=== PATIENT | male | born 1960 | race American Indian/Alaskan Native ===

== ENCOUNTER 2017-03-21 07:38 | Outpatient (CLI) | payer OTHER ==
--- NOTE | 2017-03-21 08:59 | Cat Scan Report ---
CT chest without contrast: Thoracic aneurysm: Unenhanced transverse images through the chest demonstrate that the ascending aorta measures 3.9 cm. The descending aorta measures 2.7 cm. There are some coronary vascular calcifications present. There is no hilar or mediastinal adenopathy. The central airways are patent. The lungs are clear and well inflated. No pleural changes. The available images of the upper abdominal structures demonstrates a tiny nonobstructing calculus in the mid right kidney. No other findings. Impressions: 1. Thoracic aorta within normal limits. 2. Coronary vascular calcification. 3. Nonobstructing small right renal calculus.
== END 2017-03-21 07:39 | disposition home or self-care (01) ==
LOC: CT 07:38
PROVIDERS: ATTEND Internal Medicine Cardiovascular Disease
DX: I71.2 Thoracic aortic aneurysm, without rupture (principal); I25.10 Atherosclerotic heart disease of native coronary artery without angina pectoris; N20.0 Calculus of kidney
CPT/HCPCS: 71250

== ENCOUNTER 2017-03-23 08:44 | Day surgery (SDC) | payer OTHER ==
[2017-03-23] MEDS ORDERED: ECOTRIN PO ONE (09:14)
[2017-03-23 09:44] LABS: Basophils % (Auto) 0.8 % (0.0-1.8); Eosinophils % (Auto) 2.3 % (0.0-4.3); Hematocrit 41.4 % (35.5-45.6); Hemoglobin 13.9 gm/dl (11.8-15.2); Mean Corpuscular HGB Conc 34 % (32-34); Mean Corpuscular Hemoglobin 31 pg (28-32); Mean Corpuscular Volume 93 fl (84-94); Platelet Count 277 K/mm3 (140-440); Red Blood Count 4.46 M/mm3 (3.65-5.03); Red Cell Distribution Width 14.6 % (13.2-15.2); White Blood Count 5.6 K/mm3 (4.5-11.0)
[2017-03-23 09:55] LABS: INR 0.92 (0.87-1.13)
[2017-03-23] MEDS ORDERED: NACL 0.9% 500 ML 500 ML IV SCH (10:00)
[2017-03-23 10:01] LABS: Anion Gap 15 mmol/L; BUN/Creatinine Ratio 13; Blood Urea Nitrogen 12 mg/dL (9-20); Calcium 9.2 mg/dL (8.4-10.2); Carbon Dioxide 27 mmol/L (22-30); Chloride 102.5 mmol/L (98-107); Glucose 129 mg/dL (75-100); Potassium 3.9 mmol/L (3.6-5.0); Sodium 141 mmol/L (137-145)
[2017-03-23] MEDS ORDERED: VERSED ONE ×2 (10:41→14:13)
[2017-03-23] MEDS ORDERED: HEPARIN 10,000 UNITS/10 ML ONE (10:41)
[2017-03-23] MEDS ORDERED: HEPARIN/NS 5000 UNIT/500ML(CATH LAB) 1,000 ML IR ONE (10:41)
[2017-03-23] MEDS ORDERED: CALAN ONE (10:41)
[2017-03-23] MEDS ORDERED: NITROGLYCERIN SYRINGE 0 ML ONE (10:41)
[2017-03-23] MEDS ORDERED: XYLOCAINE 2% INFILTRATI ONE (10:41)
[2017-03-23] MEDS ORDERED: HEPARIN/NS 5000 UNIT/500ML(CATH LAB) 500 ML IR ONE (11:21)
[2017-03-23] MEDS: SUBLIMAZE ONE ×2 (11:35→11:40)
[2017-03-23] MEDS ORDERED: ULTRAM PO PRN (12:46)
--- NOTE | 2017-03-23 12:49 | Discharge Summary ---
Short Stay Discharge Plan Activity: advance as tolerated Weight Bearing Status: Partial Weight Bearing Diet: low fat, low cholesterol, low salt Wound: keep clean and dry Special Instructions: no heavy lifting (3 days) Follow up with: OZ STEPHEN MD [Primary Care Provider] - 7 Days RAS CHANG MD [Staff Physician] - 7 Days
[2017-03-23] MEDS ORDERED: NACL 0.9% 1000 ML 1,000 ML IV SCH (13:00)
[2017-03-23] MEDS ORDERED: SUBLIMAZE ONE (14:13)
--- NOTE | 2017-03-23 15:56 | Cardiac Catherization Report ---
PROCEDURES PERFORMED: 1. Right heart catheterization. 2. Left heart catheterization. 3. Selective left and right coronary angiography. 4. Left ventricular angiography. 5. Ascending aortic angiography. REASON FOR PROCEDURE: The patient is a 56-year-old man with a history of bicuspid aortic valve, and history of aortic coarctation, repaired at age 14. He was evaluated for an abnormal ECG and aortic outflow murmur. EKG was also abnormal with a left bundle-branch block. A Persantine thallium stress test was abnormal with a mostly fixed inferolateral defect. Right and left heart catheterization, and ascending aortic angiography was recommended. PROCEDURE: The patient was prepped and draped in a sterile fashion after informed consent. The right femoral artery and vein were both entered using the Seldinger technique, followed by placement of a 6-Sami sheath in the artery and an 8-Sami sheath in the vein. Right heart catheterization was performed with a [place]-Eric catheter. Following this, left heart catheterization was performed using a pigtail catheter. Cardiac output was measured using the thermodilution method. Simultaneous right and left heart filling pressures were measured, following which the [place]-Eric catheter was withdrawn. Left ventricular angiography was then performed. The pigtail was pulled out across the bicuspid aortic valve, and transaortic pressures were recorded. We then performed ascending aortic angiography. Selective left and right coronary angiography was then performed using #4 right and left Kenny catheters. Finally, the right Kenny catheter was withdrawn over the aortic arch and across the isthmus of the aorta, to record pressure gradient across the repaired coarctation. The catheters and the sheaths were then removed, hemostasis achieved over the arterial positions using an Angio-Seal device, and over the venous position using manual compression. The patient was returned to the postprocedure unit in stable condition. There were no complications. FINDINGS: HEMODYNAMICS: The mean right atrial pressure was 12. Right ventricular pressure was 30/12. Pulmonary artery pressure was 30/20. The mean pulmonary artery wedge pressure was 15. Left ventricular end-diastolic pressure was 15-18. Cardiac output was 6.43 liters per minute. Ascending aortic pressure was 127/60. On pullback across the aortic valve, there was no significant gradient. As reported above, a catheter pullback was also conducted around the aortic arch. There was no significant pressure gradient across the repaired coarctation. Instead, there was normal, peripheral amplification of the systolic pressures on pullback across the aortic arch and into the descending aorta. CHOLANGIOGRAPHY: The left main coronary artery was angiographically normal. There were mild irregularities of the left anterior descending artery. A large ramus intermedius artery was angiographically normal. The circumflex artery and its obtuse marginal branches were angiographically normal. The right coronary artery was dominant and similarly free of significant disease. There was [id number] left ventricular systolic dysfunction with mild diffuse hypokinesis, ejection fraction 40-45%. CONCLUSION: 1. High normal right and left heart filling pressures, borderline pulmonary hypertension. 2. No significant transaortic valve pressure gradient, no significant aortic stenosis. 3. No significant systolic gradient on pullback across the repaired aortic coarctation. 4. Mild ascending aortic dilatation on angiography. 5. Essentially angiographically normal coronary arteries. 6. [id number] left ventricular systolic dysfunction, ejection fraction 40-45%, representing a mild nonischemic cardiomyopathy. [facility]# [id number] RAFAL/NTS
[2017-03-23 16:47] VITALS: BP 114/78
== END 2017-03-23 16:35 | disposition home or self-care (01) ==
LOC: CATHLABREC 08:44
PROVIDERS: ATTEND Internal Medicine Cardiovascular Disease
DX: R94.31 Abnormal electrocardiogram [ECG] [EKG] (principal)
CPT/HCPCS: 36415; 80048; 82962; 85025; 85610; 85730; 93005; 93010; 93460; 93567; C1760; C1894; J1644; J2250; J3010; J7040; Q9967

== ENCOUNTER 2018-02-07 15:20 | Emergency (ER) | payer OTHER ==
[2018-02-07] MEDS ORDERED: ASPIRIN PO ONE (15:33)
[2018-02-07 16:16] LABS: Basophils % (Auto) 0.5 % (0.0-1.8); Eosinophils # (Auto) 0.1 K/mm3 (0.0-0.4); Eosinophils % (Auto) 1.2 % (0.0-4.3); Hematocrit 44.5 % (35.5-45.6); Hemoglobin 14.8 gm/dl (11.8-15.2); Lymphocytes # (Auto) 3.1 K/mm3 (1.2-5.4); Lymphocytes % (Auto) 34.2 % (13.4-35.0); Mean Corpuscular HGB Conc 33 % (32-34); Mean Corpuscular Hemoglobin 31 pg (28-32); Mean Corpuscular Volume 93 fl (84-94); Monocytes # (Auto) 0.7 K/mm3 (0.0-0.8); Monocytes % (Auto) 8.1 % (0.0-7.3); Platelet Count 259 K/mm3 (140-440); Red Blood Count 4.81 M/mm3 (3.65-5.03)
[2018-02-07 16:28] LABS: BUN/Creatinine Ratio 13; Blood Urea Nitrogen 13 mg/dL (9-20); Calcium 9.2 mg/dL (8.4-10.2); Hemolysis Index 10
[2018-02-07 17:37] VITALS: BP 123/81
--- NOTE | 2018-02-07 17:40 | Emergency Department Report ---
ED Shortness of Breath HPI - General Chief Complaint: Chest Pain Stated Complaint: CHEST PAIN Time Seen by Provider: 02/07/18 17:28 Source: patient Mode of arrival: Ambulatory Limitations: No Limitations - History of Present Illness Initial Comments: 57 year old male with past medical history of obesity, hypertension, type 1 diabetes, and heart surgery for coarctation of the aorta age 14, bicuspid aortic valve presents to the hospital complaining of progressively worsening shortness of breath, and palpitations while sleeping. Patient states he does snore and he is concerned that he has sleep apnea. Symptoms have worsened to the point where he is waking up every 1 to 2 hours and getting very little rest. Patient denies dyspnea on exertion, chest pain, calf tenderness, or edema His medical record review. Patient has been seen by [facility]. Patient had a cardiac catheterization on 03/23/2017 that showed normal coronary arteries. Mild ascending aortic dilatation. Mild to moderate LV systolic dysfunction with EF of 40-45% representing a mild nonischemic cardiomyopathy. Patient had a 24-hour Holter monitor placed 1 month ago. He saw Dr. Sharp 2 weeks ago for a routine visit. He also has seen Dr. Langston rn documentation specialist who also suggested that it sounds like he has sleep apnea. Next Available sleep study was in March and patient states he can't sleep he cant wait that long. - Related Data Home Medications Medication Instructions Recorded Confirmed Last Taken Canagliflozin [Invokana] 100 mg PO DAILY 03/23/17 03/23/17 03/23/17 Insulin Lispro [Humalog 100 50 units SQ AC 03/23/17 03/23/17 03/23/17 UNITS/ML Kwikpen] Lisinopril [Zestril] 40 mg PO DAILY 03/23/17 03/23/17 03/23/17 Naltrexone HCl/Bupropion HCl 1 each PO BID 03/23/17 03/23/17 03/23/17 [Contrave ER 8-90 mg Tablet] Tamsulosin [Flomax] 0.4 mg PO QDAY 03/23/17 03/23/17 03/22/17 hydroCHLOROthiazide [HCTZ] 25 mg PO QDAY 03/23/17 03/23/17 03/23/17 Allergies Allergy/AdvReac Type Severity Reaction Status Date / Time No Known Allergies Allergy Verified 03/23/17 09:14 ED Review of Systems ROS: Stated complaint: CHEST PAIN Other details as noted in HPI Comment: All other systems reviewed and negative ED Past Medical Hx - Past Medical History Hx Hypertension: Yes Hx Diabetes: Yes (I) - Surgical History Additional Surgical History: heart surg for coarctation of the aorta age 14, bicuspid aortic valve - Social History Smoking Status: Never Smoker Substance Use Type: Marijuana - Medications Home Medications: Home Medications Medication Instructions Recorded Confirmed Last Taken Type Canagliflozin [Invokana] 100 mg PO DAILY 03/23/17 03/23/17 03/23/17 History Insulin Lispro [Humalog 100 50 units SQ AC 03/23/17 03/23/17 03/23/17 History UNITS/ML Kwikpen] Lisinopril [Zestril] 40 mg PO DAILY 03/23/17 03/23/17 03/23/17 History Naltrexone HCl/Bupropion HCl 1 each PO BID 03/23/17 03/23/17 03/23/17 History [Contrave ER 8-90 mg Tablet] Tamsulosin [Flomax] 0.4 mg PO QDAY 03/23/17 03/23/17 03/22/17 History hydroCHLOROthiazide [HCTZ] 25 mg PO QDAY 03/23/17 03/23/17 03/23/17 History ED Physical Exam - General Limitations: No Limitations - Other Other exam information: General: No limitations, patient is alert in no acute distress Head exam: Atraumatic, normocephalic Eyes exam: Normal appearance, pupils equal reactive to light, extraocular movements intact ENT: Moist mucous membrane, normal oropharynx Neck exam: Normal inspection, full range of motion, no meningismus nontender Respiratory exam: Clear to auscultation bilateral, no wheezes, rales, crackles Cardiovascular: Normal rate and rhythm, normal heart sounds Abdomen: Soft, nondistended, and nontender, with normal bowel sounds, no rebound, or guarding Extremity: Full range of motion normal inspection no deformity Back: Normal Inspection, full range of motion, no tenderness Neurologic: Alert, oriented x3, cranial nerves intact, no motor or sensory deficit Psychiatric: normal affect, normal mood Skin: Warm, dry, intact ED Course Vital Signs 02/07/18 02/07/18 02/07/18 15:27 17:36 17:37 Temperature 98.2 F 98.7 F Pulse Rate 65 80 Respiratory 16 16 Rate Blood Pressure 145/91 Blood Pressure 123/81 [Left] O2 Sat by Pulse 97 97 97 Oximetry 02/07/18 21:51 Temperature Pulse Rate 71 Respiratory 17 Rate Blood Pressure Blood Pressure [Left] O2 Sat by Pulse 97 Oximetry - Consultations Consultation #1: 02/07/18 18:15 Case was discussed with Dr. Stephen who arranged for outpatient follow-up with cardiology and pulmonology. I informed him of the patient's concern that he can 't sleep and can't wait for the sleep study until March. [place] but [place] be back next week. He advises that patient follow-up next week. He recommends Ativan prior to bedtime to assist with sleeping. When he returns he will try to arrange for an earlier study appointment. Consultation #2: 02/07/18 18:[address] Alvares sales solutions associate rn documentation specialist with Dr. Guerrero, He suggests Provent sleep apnea therapy device prescription to temporize patient's symptoms until sleep study test can be performed. He does not advise Ativan as the medication at this time. He also recommends patient call the office tomorrow and try to get an earlier appointment for sleep study. ED Medical Decision Making - Lab Data Result diagrams: 02/07/18 15:50 02/07/18 15:50 Lab Results 02/07/18 02/07/18 Range/Units 15:50 15:50 WBC 9.0 (4.5-11.0) K/mm3 RBC 4.81 (3.65-5.03) M/mm3 Hgb 14.8 (11.8-15.2) gm/dl Hct 44.5 (35.5-45.6) % MCV 93 (84-94) fl MCH 31 (28-32) pg MCHC 33 (32-34) % RDW 15.0 (13.2-15.2) % Plt Count 259 (140-440) K/mm3 Lymph % (Auto) 34.2 (13.4-35.0) % [place] % (Auto) 8.1 H (0.0-7.3) % Eos % (Auto) 1.2 (0.0-4.3) % Baso % (Auto) 0.5 (0.0-1.8) % Lymph # 3.1 (1.2-5.4) K/mm3 [place] # 0.7 (0.0-0.8) K/mm3 Eos # 0.1 (0.0-0.4) K/mm3 Baso # 0.0 (0.0-0.1) K/mm3 Seg Neutrophils % 56.0 (40.0-70.0) % Seg Neutrophils # 5.0 (1.8-7.7) K/mm3 Sodium 137 (137-145) mmol/L Potassium 4.0 (3.6-5.0) mmol/L Chloride 98.8 (98-107) mmol/L Carbon Dioxide 26 (22-30) mmol/L Anion Gap 16 mmol/L BUN 13 (9-20) mg/dL Creatinine 1.0 (0.8-1.5) mg/dL Estimated GFR > 60 ml/min BUN/Creatinine Ratio 13 % Glucose 116 H (75-100) mg/dL Calcium 9.2 (8.4-10.2) mg/dL Troponin T < 0.010 (0.00-0.029) ng/mL - EKG Data -: EKG Interpreted by Ms EKG shows normal: sinus rhythm, axis (qrs -68), QRS complexes (qrsd 126), ST-T waves (no stemi) Rate: normal - EKG Data When compared to previous EKG there are: no significant change (compared to previous) - Radiology Data Radiology results: report reviewed FINAL REPORT EXAM: XR CHEST ROUTINE 2V HISTORY: cp, sob TECHNIQUE: PA and lateral views of the chest Comparison: None FINDINGS: There is a small cluster of small nodular densities in the mid to lower lung field demonstrated on the PA view. Whether not this is real or artifact is unclear. A nodular pulmonary infiltrate needs to be considered. There is also a linear focus of increased density, atelectasis versus scar formation this region. There is no evidence of pneumothorax or pleural fluid collection. The cardiomediastinal silhouette is normal in appearance. The bony structures are unremarkable. IMPRESSION: 1. Small cluster of nodular densities in the mid to lower lung field demonstrated on the PA view. A nodular pulmonary infiltrate needs to be considered. Comparison with previous imaging studies or CT chest would be helpful for further evaluation. FINAL REPORT EXAM: CT CHEST W CON HISTORY: sob/palp with sleeping, nodular cxr densities TECHNIQUE: Following administration of IV contrast axial helical imaging was performed through the chest with sagittal and coronal reformatted images obtained. Comparison: Chest x-ray performed earlier today. FINDINGS: There are areas of pulmonary consolidation with volume loss in the left upper lobe/left lingula that likely represent areas of atelectasis. These are the most likely etiology of the abnormality demonstrated on the recent chest x-ray. There is no definite evidence of pulmonary infiltrate. There is no evidence of pneumothorax or pleural fluid collection. The trachea and bronchi are patent. The heart is enlarged. The thoracic aorta is normal caliber. No filling defects are demonstrated within central pulmonary arteries to suggest the presence of central pulmonary artery emboli. However, peripheral segmental pulmonary artery emboli could be missed or overcalled due to motion artifact. There are mildly prominent mediastinal lymph nodes. These are nonspecific in appearance but are most likely inflammatory in nature. The visualized portion the upper abdomen is unremarkable. The bony structures are notable for spondylitic change of the thoracic spine. IMPRESSION: 1. Appearance of areas of atelectasis in the left upper lobe/left lingula. These are the most likely etiology of the abnormality demonstrated on the recent chest x-ray. No definite evidence of pulmonary infiltrate. 2. Cardiomegaly. 3. No evidence of central pulmonary artery emboli. 4. Spondylitic change thoracic spine. - Medical Decision Making Patient had bursitis and associated apnea however, patient has abnormal chest x- ray findings if her CT with IV contrast ordered. Case was discussed with both patient's primary care doctor that the heartbeat and still be prior to receiving chest x-ray report Patient will need to be signed out to Dr. Gonzalez to follow-up CT report and reconsult Dr. Alvares I have written for Proventil sleep apnea therapy prescription as well as preprinted suppliers in this part of [facility]. - Differential Diagnosis pulmonary infiltrate, CHF, sleep apnea, arrhythmia, palpitations Critical Care Time: No Critical care attestation.: If time is entered above; I have spent that time in minutes in the direct care of this critically ill patient, excluding procedure time. ED Disposition Clinical Impression: Sleep apnea Disposition: DC-01 TO HOME OR SELFCARE Is pt being admited?: No Condition: Stable Instructions: Snoring (ED) Additional Instructions: Use the Provent sleep apnea temporizing device until you can obtain a sleep study test. Call your rn documentation specialist/Dr Langston's office tomorrow to try to get a early in appointment for sleep study test. Follow up with Dr. Stephen next Monday or Monday when he comes back into town and will also try to arrange an earlier sleep study appointment. Return if symptoms worsen as indicated by your discharge instructions. Referrals: OZ STEPHEN MD [Staff Physician] - 3-5 Days BERE LANGSTON MD [Staff Physician] - JESSICA Forms: Work/School Release Form(ED) Time of Disposition: 19:00 (s/o to d/r shear)
--- NOTE | 2018-02-07 18:50 | XRay Report ---
FINAL REPORT EXAM: XR CHEST ROUTINE 2V HISTORY: cp, sob TECHNIQUE: PA and lateral views of the chest Comparison: None FINDINGS: There is a small cluster of small nodular densities in the mid to lower lung field demonstrated on the PA view. Whether not this is real or artifact is unclear. A nodular pulmonary infiltrate needs to be considered. There is also a linear focus of increased density, atelectasis versus scar formation this region. There is no evidence of pneumothorax or pleural fluid collection. The cardiomediastinal silhouette is normal in appearance. The bony structures are unremarkable. IMPRESSION: 1. Small cluster of nodular densities in the mid to lower lung field demonstrated on the PA view. A nodular pulmonary infiltrate needs to be considered. Comparison with previous imaging studies or CT chest would be helpful for further evaluation.
[2018-02-07] MEDS ORDERED: NACL 0.9% 250 ML ONE (20:45)
--- NOTE | 2018-02-07 21:25 | Cat Scan Report ---
FINAL REPORT EXAM: CT CHEST W CON HISTORY: sob/palp with sleeping, nodular cxr densities TECHNIQUE: Following administration of IV contrast axial helical imaging was performed through the chest with sagittal and coronal reformatted images obtained. Comparison: Chest x-ray performed earlier today. FINDINGS: There are areas of pulmonary consolidation with volume loss in the left upper lobe/left lingula that likely represent areas of atelectasis. These are the most likely etiology of the abnormality demonstrated on the recent chest x-ray. There is no definite evidence of pulmonary infiltrate. There is no evidence of pneumothorax or pleural fluid collection. The trachea and bronchi are patent. The heart is enlarged. The thoracic aorta is normal caliber. No filling defects are demonstrated within central pulmonary arteries to suggest the presence of central pulmonary artery emboli. However, peripheral segmental pulmonary artery emboli could be missed or overcalled due to motion artifact. There are mildly prominent mediastinal lymph nodes. These are nonspecific in appearance but are most likely inflammatory in nature. The visualized portion the upper abdomen is unremarkable. The bony structures are notable for spondylitic change of the thoracic spine. IMPRESSION: 1. Appearance of areas of atelectasis in the left upper lobe/left lingula. These are the most likely etiology of the abnormality demonstrated on the recent chest x-ray. No definite evidence of pulmonary infiltrate. 2. Cardiomegaly. 3. No evidence of central pulmonary artery emboli. 4. Spondylitic change thoracic spine.
== END 2018-02-07 21:51 | disposition home or self-care (01) ==
LOC: ED 15:20
DX: G47.30 Sleep apnea, unspecified (principal); I10 Essential (primary) hypertension; E11.9 Type 2 diabetes mellitus without complications; F12.10 Cannabis abuse, uncomplicated; Z79.4 Long term (current) use of insulin
CPT/HCPCS: 36415; 71046; 71260; 80048; 84484; 85025; 93005; 93010; 99285; Q9967